=== PATIENT | male | born 1985 ===

== ENCOUNTER → 2022-12-28 14:49 | Outpatient (BNVA) | payer OTHER, SELFPAY | PROVIDERS: Visit Provider Physician Assistant | DX: S63.602A Unspecified sprain of left thumb, initial encounter (principal) | CPT/HCPCS: 99202 ==

== ENCOUNTER 2024-08-28 08:00 | Outpatient (RCR) | payer OTHER, SELFPAY ==
--- NOTE | 2024-07-20 15:03 | MHC.PT.EP ---
[facility] [place] Office [place] [facility] [place] Office [address] Tao Ocampo [address] [phone] F: [phone] F: [phone] F: [phone] F: [phone] Physical Therapy Plan of Care Date of Evaluation: 07/20/24 Date of Surgery: Diagnosis: unspecified injury to shoulder and arm Assessment: 39 y/o L-hand dominant male referred to PT with unspecified injury to shoulder and arm. Examination shows decreased shoulder ROM wit thoracic compensatory patterns, decreased scapular/ RTC strength, pain, decreased pec length and impaired postural awareness. Recommend PT 2x/week for 5 weeks to address impairments, implement HEP, and optimize functional mobility. 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 Manual therapy to restore motion and function. Therapeutic exercise to improve strength and flexibility. Neuromuscular re-education for posture and balance. Therapeutic activities to return to functional activities of daily living. Electronically signed by: Fannie Gallardo PT Please sign and return to therapist. Thank you for your referral.
--- NOTE | 2024-10-09 09:22 | MHC.PT.DC ---
[facility] [place] Office [place] Office [place] Office [address] Tao Ocampo [address] [phone] F: [phone] F: [phone] F: [phone] F: [phone] Physical Therapy Discharge Report Diagnosis: unspecified injury to shoulder and arm Date of Surgery: Date of Evaluation: 07/20/24 Date of Discharge: 10/09/24 Treatments to Date: 3 Cancellations to Date: 0 No Shows to Date: 0 Discharge Status: Improved Function Independent with HEP Discharge Summary: Pt reports notable improvements and is compliant with HEP. We discussed performed specific resistance exercises 2x/week and other days can be cardio and/or leg strengthening. He also improved with proprioceptive awareness of shoulder mechanics with functional mobility. D/c at this time to I HEP Electronically signed by: Fannie Gallardo PT Please sign and return to therapist. Thank you for your referral.
== END 2024-10-09 09:22 | disposition home or self-care (01) ==
LOC: HO.PTCHIC 08:00
PROVIDERS: Visit Provider Orthopaedic Surgery
DX: S49.90XD Unspecified injury of shoulder and upper arm, unspecified arm, subsequent encounter (principal)
CPT/HCPCS: 97110; 97161